=== PATIENT | female | born 1990 | race Caucasian/White ===

== ENCOUNTER 2019-07-02 05:25 | Emergency (ER) | payer BC ==
[2019-07-02] MEDS ORDERED: Albuterol/Ipratropium 3.0-0.5 MG/3 ML Neb Soln NEB ONE (05:44)
--- NOTE | 2019-07-02 05:49 | EDM.PDOC ---
ED HPI GENERAL MEDICAL PROBLEM - General Chief Complaint: Respiratory Problem Stated Complaint: TROUBLE BREATHING Time Seen by Provider: 07/02/19 05:44 Source of Information: Reports: Patient History Limitations: Reports: No Limitations - History of Present Illness INITIAL COMMENTS - FREE TEXT/NARRATIVE: sick with cough since last week. denies fever but worried since son has pneumonia. 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 ED EXAM, GENERAL - Physical Exam Exam: See Below Exam Limited By: No Limitations General Appearance: Alert, WD/WN, Mild Distress, Other (cough spasm) Ears: Hearing Grossly Normal Throat/Mouth: Normal Voice, No Airway Compromise Head: Atraumatic Neck: Non-Tender, Full Range of Motion Respiratory/Chest: No Accessory Muscle Use, Rhonchi, Wheezing. No: Decreased Breath Sounds Cardiovascular: Regular Rate, Rhythm GI/Abdominal: Soft, Non-Tender Neurological: Alert, Oriented, Normal Cognition, Normal Gait, No Motor/Sensory Deficits Psychiatric: Normal Affect, Normal Mood Skin Exam: Warm, Dry, Normal Color Lymphatic: No Adenopathy Course - Vital Signs Last Recorded V/S: Last Vital Signs Temp 36.4 C 07/02/19 05:33 Pulse 113 H 07/02/19 05:33 Resp 16 07/02/19 05:33 BP 140/91 H 07/02/19 05:33 Pulse Ox 99 07/02/19 05:33 - Orders/Labs/Meds Orders: Active Orders 24 hr Category Date Time Status RT Aerosol Therapy [RC] ASDIRECTED Care 07/02/19 05:44 Active Meds: Medications Discontinued Medications Generic Name Dose Route Start Last Admin Trade Name Jimboq PRN Reason Stop Dose Admin Albuterol/Ipratropium 3 ml 07/02/19 05:44 07/02/19 05:49 Duoneb 3.0-0.5 Mg/3 Ml NEB 07/02/19 05:45 3 ml ONETIME ONE Administration Departure - Departure Time of Disposition: 06:00 Disposition: Home, Self-Care 01 Condition: Good Clinical Impression: Bronchospasm with bronchitis, acute - Discharge Information Instructions: Acute Bronchitis, Adult, [id number] Forms: ED Department Discharge Additional Instructions: 1) don't sleep flat at night 2) use humidifier at bedtime 3) drink lots of liquids 4) see family doctor for possible prednisone on Thursday rx given; albuterol 2.5mg solution tid prn Sepsis Event Note - Evaluation Sepsis Screening Result: No Definite Risk - Focused Exam Vital Signs: Vital Signs Temp Pulse Resp BP Pulse Ox 07/02/19 05:33 36.4 C 113 H 16 140/91 H 99 Date Exam was Performed: 07/02/19 Time Exam was Performed: 06:10 - My Orders Last 24 Hours: My Active Orders 07/02/19 05:44 RT Aerosol Therapy [RC] ASDIRECTED - Assessment/Plan Last 24 Hours: My Active Orders 07/02/19 05:44 RT Aerosol Therapy [RC] ASDIRECTED
== END 2019-07-02 05:56 | disposition home or self-care (01) ==
LOC: DL.ED 05:25
DX: J20.9 Acute bronchitis, unspecified (principal); Z88.8 Allergy status to other drugs, medicaments and biological substances; Z88.2 Allergy status to sulfonamides
CPT/HCPCS: 99283-25; J7620-GY

== ENCOUNTER 2019-09-10 18:54 | Inpatient (IN) | payer BC, OTHER ==
[2019-09-10] MEDS ORDERED: Sodium Chloride 0.9% 10 ML Syringe FLUSH PRN (19:47)
[2019-09-10] MEDS ORDERED: Lidocaine 1% 30 ML SDV INJECT PRN (19:47)
[2019-09-10] MEDS ORDERED: Tranexamic Acid 1,000 MG in Sodium Chloride 0.9% 100 ML IV PRN (19:47)
[2019-09-10] MEDS ORDERED: Carboprost Tromethamine 250 MCG/1 ML Amp IM PRN (19:47)
[2019-09-10] MEDS ORDERED: Ondansetron 4 MG/2 ML SDV IVPUSH PRN (19:47)
[2019-09-10] MEDS ORDERED: Lactated Ringers 1,000 ML IV ONE (19:47)
[2019-09-10] MEDS ORDERED: Misoprostol 400 MCG (4 X 100 MCG TAB) RECTAL PRN (19:47)
[2019-09-10] MEDS ORDERED: Methylergonovine 0.2 MG/1 ML Amp IM PRN (19:47)
[2019-09-10] MEDS ORDERED: Oxytocin/Normal Saline 30 UNIT/500 ML BAG IV SCH (20:00)
[2019-09-10] MEDS ORDERED: fentaNYL 100 MCG/2 ML SDV IVPUSH STA ×2 (21:31→22:21)
[2019-09-10] MEDS: Lactated Ringers 1,000 ML IV SCH (21:41)
[2019-09-10] MEDS ORDERED: EPINEPHrine 1 MG/1 ML Amp ONE ×2 (22:48→23:59)
--- NOTE | 2019-09-10 23:07 | PCM.PREANE ---
Preanesthetic Assessment - Procedure Proposed Procedure: INtrathecal analgesia - Anesthesia/Transfusion/Family Hx Anesthesia History: Prior Anesthesia Without Reaction Family History of Anesthesia Reaction: No Transfusion History: No Prior Transfusion(s) - Review of Systems General: No Symptoms Pulmonary: No Symptoms Cardiovascular: No Symptoms Gastrointestinal: No Symptoms Neurological: No Symptoms Other: Reports: None - Physical Assessment NPO Status Date: 09/10/19 NPO Status Time: 18:00 Height: 5 ft 9 in ASA Class: 2E Mental Status: Alert & Oriented x3 Airway Class: Mallampati = 2 Dentition: Reports: Normal Dentition Thyro-Mental Finger Breadths: 3 Mouth Opening Finger Breadths: 3 ROM/Head Extension: Full Lungs: Clear to Auscultation Cardiovascular: Regular Rate - Lab Values: Laboratory Last Values WBC 9.9 10^3/uL (5.0-10.0) 09/10/19 20:05 RBC 4.33 10^6/uL (4.2-5.4) 09/10/19 20:05 Hgb 12.5 g/dL (12.0-16.0) 09/10/19 20:05 Hct 37.3 % (37.0-47.0) 09/10/19 20:05 MCV 86.1 fL (80-100) 09/10/19 20:05 MCH 28.9 pg (27.0-34.0) 09/10/19 20:05 MCHC 33.5 g/dL (33.0-35.0) 09/10/19 20:05 Plt Count 289 10^3/uL (150-450) 09/10/19 20:05 SARS-CoV-2 RNA (RT-PCR) Negative (NEGATIVE) 09/10/19 20:00 - Allergies Allergies/Adverse Reactions: Allergies Allergy/AdvReac Type Severity Reaction Status Date / Time sulfamethoxazole Allergy Hives Verified 07/02/19 05:33 [From Bactrim] trimethoprim [From Bactrim] Allergy Hives Verified 07/02/19 05:33 - Anesthesia Plan Pre-Op Medication Ordered: None - Acknowledgements Anesthesia Type Planned: Spinal Pt an Appropriate Candidate for the Planned Anesthesia: Yes Alternatives and Risks of Anesthesia Discussed w Pt/Guardian: Yes Pt/Guardian Understands and Agrees with Anesthesia Plan: Yes 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: - HOME MEDS Home Medications: Home Meds Pnv No.95/Ferrous Fum/Folic AC [ Caplet] 1 cap PO DAILY 07/02/19 [ History] - CURRENT (IN HOUSE) MEDS Current Meds: Current Medications Acetaminophen (Tylenol) 650 mg PO Q4H PRN PRN Reason: Pain (Mild 1-3) and fever Carboprost Tromethamine (Hemabate Ds) 250 mcg IM ASDIRECTED PRN PRN Reason: HEMORRHAGE Lactated Ringer's (Ringers, Lactated) 1,000 mls @ 125 mls/hr IV ASDIRECTED THANH Last Admin: 09/10/19 21:41 Dose: 125 mls/hr Oxytocin/Sodium Chloride (Pitocin In Ns 30 Unit/500 Ml) 30 unit in 500 mls @ 2 mls/hr IV TITRATE THANH; Protocol Tranexamic Acid 1,000 mg/ (Sodium Chloride) 110 mls @ 660 mls/hr IV ONETIME PRN PRN Reason: Bleeding Lidocaine HCl (Xylocaine-Mpf 1%) 30 ml INJECT ASDIRECTED PRN PRN Reason: Perineal Repair Methylergonovine Maleate (Methergine) 0.2 mg IM ASDIRECTED PRN PRN Reason: Hemorrhage Misoprostol (Cytotec) 800 mcg RECTAL ASDIRECTED PRN PRN Reason: Hemorrhage Ondansetron HCl (Zofran) 4 mg IVPUSH Q4H PRN PRN Reason: Nausea/Vomiting Last Admin: 09/10/19 21:41 Dose: 4 mg Sodium Chloride (Saline Flush) 10 ml FLUSH ASDIRECTED PRN PRN Reason: Keep Vein Open Discontinued Medications Epinephrine HCl (Adrenalin) Confirm Administered Dose 1 mg .ROUTE .STK-MED ONE Stop: 09/10/19 22:49 Fentanyl (Sublimaze) 50 mcg IVPUSH ONETIME STA Stop: 09/10/19 21:32 Last Admin: 09/10/19 21:40 Dose: 50 mcg Fentanyl (Sublimaze) 50 mcg IVPUSH ONETIME STA Stop: 09/10/19 22:22 Last Admin: 09/10/19 22:28 Dose: 50 mcg Lactated Ringer's (Ringers, Lactated) 1,000 mls @ 999 mls/hr IV BOLUS ONE Stop: 09/10/19 20:47 Last Admin: 09/10/19 21:47 Dose: Not Given
--- NOTE | 2019-09-10 23:10 | PCM.PRNOTE ---
- Free Text/Narrative Note: Intrathecal analgesia 2252 in room. Time out complete. Sitting position Back prepped and draped nsf with betadine. Lidocaine skin wheal 1% L3/4 24 ga needle. +CSF - Heme - Parathesia 10 mcg precedex 0.1mL epi .9mL NS 0.9 mL 0.75% marcaine. procedure complete 2259 All needles accounted for. pt. tolerated procedure well.
[2019-09-10] MEDS ORDERED: Dexmedetomidine 200 MCG/2 ML SDV ONE ×2 (23:15→23:59)
[2019-09-10] MEDS ORDERED: ePHEDrine 50 MG/ML SDV ONE (23:31)
[2019-09-10] MEDS ORDERED: Sodium Chloride 0.9% 10 ML Syringe ONE (23:59)
[2019-09-11] MEDS: Lactated Ringers 1,000 ML IV SCH ×2 (00:29→01:18)
[2019-09-11] MEDS ORDERED: ePHEDrine 50 MG/ML SDV ONE ×2 (01:12→01:57)
[2019-09-11] MEDS ORDERED: Sodium Chloride 0.9% 10 ML Syringe ONE (01:30)
[2019-09-11] MEDS ORDERED: EPINEPHrine 1 MG/1 ML Amp ONE ×2 (01:30→01:41)
[2019-09-11] MEDS ORDERED: Dexmedetomidine 200 MCG/2 ML SDV ONE ×2 (01:30→11:47)
--- NOTE | 2019-09-11 02:15 | PCM.PRNOTE ---
- Free Text/Narrative Note: Redo IT Discussed expectations with patient. Reiterated difference between pressure and pain. Pt. wishes to proceed. Time out 0145 Sitting position Back prepped and draped NSF with betadine 1% skin wheal lidocaine L3/4 + CSF - Heme - Parathesia 0.9mL marcaine 0.75% 10 mcg precedex 0.1mL epi 0.9mL saline. Tolerated well. All sharps accounted for. Procedure end 0154
[2019-09-11] MEDS ORDERED: Carboprost Tromethamine 250 MCG/1 ML Amp IM PRN (03:02)
[2019-09-11] MEDS ORDERED: Zolpidem 5 MG Tab PO PRN (03:02)
[2019-09-11] MEDS ORDERED: Tranexamic Acid 1,000 MG in Sodium Chloride 0.9% 100 ML IV PRN (03:02)
[2019-09-11] MEDS ORDERED: Simethicone 80 MG Tab.Chew PO PRN (03:02)
[2019-09-11] MEDS ORDERED: Benzocaine/Menthol 20%-0.5% Spray 56 GM Canister TOP PRN (03:02)
[2019-09-11] MEDS ORDERED: Misoprostol 400 MCG (4 X 100 MCG TAB) RECTAL PRN (03:02)
[2019-09-11] MEDS ORDERED: Sodium Chloride 0.9% 10 ML Syringe FLUSH PRN (03:02)
[2019-09-11] MEDS ORDERED: Oxytocin 10 Units/1 ML SDV IM PRN (03:02)
[2019-09-11] MEDS ORDERED: Acetaminophen 325 MG Tab PO PRN (03:02)
[2019-09-11] MEDS: Ibuprofen 800 MG Tab PO PRN ×3 (06:10→22:21)
[2019-09-11] MEDS: Acetaminophen 325 MG Tab PO PRN ×3 (06:11→17:50)
[2019-09-11] MEDS: Docusate Sodium 100 MG Cap PO PRN (10:12)
[2019-09-11] MEDS: Prenatal Multivitamin with Calcium/Folic Acid/Iron Tab PO SCH (10:12)
--- NOTE | 2019-09-11 11:59 | PCM48HPAN ---
Post Anesthesia Note - EVALUATION WITHIN 48HRS OF ANESTHETIC Vital Signs in Normal Range: Yes Patient Participated in Evaluation: Yes Respiratory Function Stable: Yes Airway Patent: Yes Cardiovascular Function Stable: Yes Hydration Status Stable: Yes Pain Control Satisfactory: Yes Nausea and Vomiting Control Satisfactory: Yes Mental Status Recovered: Yes Vital Signs: Last Vital Signs Temp 97.3 F 09/11/19 08:00 Pulse 67 09/11/19 08:00 Resp 16 09/11/19 08:00 BP 109/66 09/11/19 08:00 Pulse Ox 96 09/11/19 08:00 - COMMENTS/OBSERVATIONS Free Text/Narrative:: Pt resting comfortably in bed. No ARCs
[2019-09-11] MEDS: Acetaminophen/HYDROcodone 325-5 MG Tab PO PRN (20:20)
--- NOTE | 2019-09-11 20:55 | HP ---
LOCATION: [facility]. HISTORY OF PRESENT ILLNESS: The patient is a 29-year-old G2, P1-0-0-1, who presents today with painful contractions. No vaginal bleeding. Possible leakage of fluid. Good movement. OB HISTORY: The patient has had 1 vaginal delivery. That baby did weigh 7 pounds 6 ounces. PULMONOLOGIST/INTENSIVIST HISTORY: No abnormal Paps. No STDs. PAST MEDICAL HISTORY: Negative. PAST SURGICAL HISTORY: Colonoscopy. SOCIAL HISTORY: The patient does smoke. ALLERGIES: The patient is allergic to Bactrim. REVIEW OF SYSTEMS: Her has been relatively uncomplicated. LABS: Blood type O positive, antibody negative, rubella immune, syphilis negative, hepatitis B negative. 1 hour was 135. GBS was negative. Anatomy scan was normal with a posterior placenta. She did have a recent interval growth scan and that was also normal. PHYSICAL EXAMINATION: Vital Signs: The patient's heart rate 58, blood pressure 94/45, temp 36.4 cm. Pelvic: EFM is reactive, reassuring, but a few early decelerations. She was el[place] every 3 minutes. Does appear somewhat uncomfortable. In clinic, she was 1 cm. Our Labor nurse checked her, she was 2 cm, and when I came over to assess the patient, she was 3-1/2 cm, 90% effaced, and -1 station. LABORATORY DATA: White blood cell count was 9.9, hemoglobin 12.5. She is COVID negative. ASSESSMENT AND PLAN: This is an intrauterine at term, in active labor. Group B strep negative. We will augment with AROM. Plan for vaginal delivery and the patient does likely desire an intrathecal. [facility] /[id number] MTDD
--- NOTE | 2019-09-11 21:10 | DEL ---
DATE: 09/11/2019 The patient delivered in [facility] on 09/11/2019. PREDELIVERY DIAGNOSIS: This is an intrauterine at term, admitted in active labor. Group B strep negative. Delivery was a normal spontaneous vaginal delivery. Delivering clinician was Dr. Covington. FINDINGS: There was an who weighed 3750 g. score 9 and 9. ESTIMATED BLOOD LOSS: Normal for vaginal delivery. PROCEDURE IN DETAIL: The patient did present to Labor and Delivery and had regular contractions and was changing her cervix. She is group B strep negative, therefore AROM was performed to augment labor. At some point, it was difficult to obtain heart tones and contractions, therefore FSE and IUPC were both placed. The patient did receive 2 intrathecals and when the infant was having some decelerations, the patient was asked to push and the infant was delivered without any difficulties. Head was delivered. Shoulders were delivered. The was placed on the maternal abdomen. There was delayed cord clamping and the cord was clamped and cut. The cord blood was collected and the placenta was delivered with some cord traction and uterine massage. Then the 3rd stage of Pitocin was given. Placenta was delivered intact. EBL was normal for vaginal delivery, and there were no lacerations. At the end of the procedure, mom and baby were both doing well. The baby did weigh 3750 g, scores were 9 and 9. [facility] /[id number]
[2019-09-12] MEDS: Acetaminophen/HYDROcodone 325-5 MG Tab PO PRN ×2 (05:29→10:29)
[2019-09-12] MEDS: Ibuprofen 800 MG Tab PO PRN (07:41)
--- NOTE | 2019-09-12 07:59 | PCM.DCSUM1 ---
Discharge Summary - Hospital Course Free Text/Narrative:: 29-year-old PPD#1 s/p at 38w0d Diagnosis: Stroke: No - Discharge Data Discharge Date: 09/12/19 Discharge Disposition: Home, Self-Care 01 Condition: Good - Referral to Home Health Primary Care Physician: Jose R Ramirez MD - Patient Summary/Data Operative Procedure(s) Performed: None Complications: None Consults: None Labs Pending at D/C: None Recommended Follow-up Testing/Procedures: None Planned Operative Procedure(s) after DC: None Hospital Course: Please see subjective section - Patient Instructions Diet: Usual Diet as Tolerated Activity: As Tolerated, No Lifting Over 20 Pounds Driving: May Drive Today Showering/Bathing: May Shower Notify Provider of: Fever, Increased Pain, Swelling and Redness - Discharge Plan *PRESCRIPTION DRUG MONITORING PROGRAM REVIEWED*: Not Applicable *COPY OF PRESCRIPTION DRUG MONITORING REPORT IN PATIENT LISA: Not Applicable Home Medications: Home Meds Pnv No.95/Ferrous Fum/Folic AC [ Caplet] 1 cap PO DAILY 07/02/19 [ History] Acetaminophen [Tylenol] 650 mg PO Q6H PRN tablet 09/12/19 [Rx] Acetaminophen/HYDROcodone [Freedom 325-5 MG] 1 tab PO Q4H PRN tablet 09/12/19 [Rx ] Docusate Sodium [Colace] 100 mg PO BID PRN cap 09/12/19 [Rx] Ibuprofen [Motrin] 800 mg PO Q8H PRN tablet 09/12/19 [Rx] - Discharge Summary/Plan Comment DC Time >30 min.: No Discharge Summary/Plan Comment: Discharge home today. Follow-up in clinic in 6-8 weeks for routine care. Reasons to return sooner were reviewed. All questions were answered. - General Info Date of Service: 09/12/19 Subjective Update: 29-year-old now PPD#1 s/p . Doing well. Complains of some back pain and cramping. Did need Freedom to sleep last night. is going well. Baby is sometimes sleepy but does have a good latch. Passing gas. Tolerating a general diet. Ambulating without dizziness or lightheadedness. No concerns per patient or per nursing staff. Functional Status: Reports: Pain Controlled, Tolerating Diet, Ambulating, Urinating - Review of Systems General: Reports: No Symptoms HEENT: Reports: No Symptoms Pulmonary: Reports: No Symptoms Cardiovascular: Reports: No Symptoms Gastrointestinal: Reports: Abdominal Pain Genitourinary: Reports: No Symptoms Musculoskeletal: Reports: Back Pain Skin: Reports: No Symptoms Neurological: Reports: No Symptoms - Patient Data Vitals - Most Recent: Last Vital Signs Temp 36.6 C 09/11/19 20:00 Pulse 66 09/11/19 20:00 Resp 16 09/11/19 20:00 BP 112/56 L 09/11/19 20:00 Pulse Ox 98 09/11/19 20:00 Weight - Most Recent: 113.398 kg Lab Results - Last 24 hrs: Laboratory Results - last 24 hr 09/12/19 Range/Units 05:25 WBC 11.0 H (5.0-10.0) 10^3/uL RBC 3.97 L (4.2-5.4) 10^6/uL Hgb 11.5 L (12.0-16.0) g/dL Hct 35.2 L (37.0-47.0) % MCV 88.7 (80-100) fL MCH 29.0 (27.0-34.0) pg MCHC 32.7 L (33.0-35.0) g/dL Plt Count 252 (150-450) 10^3/uL Med Orders - Current: Current Medications Acetaminophen (Tylenol) 650 mg PO Q4H PRN PRN Reason: Pain (Mild 1-3) and fever Last Admin: 09/11/19 17:50 Dose: 650 mg Acetaminophen (Tylenol) 650 mg PO Q6H PRN PRN Reason: mild pain or fever Hydrocodone Bitart/Acetaminophen (Freedom 325-5 Mg) 1 tab PO Q4H PRN PRN Reason: Pain Last Admin: 09/12/19 05:29 Dose: 1 tab Benzocaine/Menthol (Dermoplast Pain Relief [place]) 0 gm TOP Q4H PRN PRN Reason: Perineal comfort measures Carboprost Tromethamine (Hemabate Ds) 250 mcg IM ASDIRECTED PRN PRN Reason: HEMORRHAGE Carboprost Tromethamine (Hemabate Ds) 250 mcg IM ASDIRECTED PRN PRN Reason: Excessive vaginal bleeding Docusate Sodium (Colace) 100 mg PO BID PRN PRN Reason: Constipation Last Admin: 09/11/19 10:12 Dose: 100 mg Lactated Ringer's (Ringers, Lactated) 1,000 mls @ 125 mls/hr IV ASDIRECTED THANH Last Infusion: 09/11/19 05:40 Dose: 0 mls/hr Oxytocin/Sodium Chloride (Pitocin In Ns 30 Unit/500 Ml) 30 unit in 500 mls @ 2 mls/hr IV TITRATE THANH; Protocol Last Titration: 09/11/19 05:40 Dose: 0 munits/min, 0 mls/hr Tranexamic Acid 1,000 mg/ (Sodium Chloride) 110 mls @ 660 mls/hr IV ONETIME PRN PRN Reason: Bleeding Ibuprofen (Motrin) 800 mg PO Q8H PRN PRN Reason: Mild Pain or Fever Last Admin: 09/12/19 07:41 Dose: 800 mg Lidocaine HCl (Xylocaine-Mpf 1%) 30 ml INJECT ASDIRECTED PRN PRN Reason: Perineal Repair Methylergonovine Maleate (Methergine) 0.2 mg IM ASDIRECTED PRN PRN Reason: Hemorrhage Misoprostol (Cytotec) 800 mcg RECTAL ASDIRECTED PRN PRN Reason: Hemorrhage Misoprostol (Cytotec) 800 mcg RECTAL ONETIME PRN PRN Reason: Hemorrhage Ondansetron HCl (Zofran) 4 mg IVPUSH Q4H PRN PRN Reason: Nausea/Vomiting Last Admin: 09/10/19 21:41 Dose: 4 mg Oxytocin (Pitocin) 10 unit IM ONETIME PRN PRN Reason: Bleeding Prenat Multivit/Geiger/Iron/Folic Ac ( Plus Iron) 1 each PO DAILY THANH Last Admin: 09/11/19 10:12 Dose: 1 each Simethicone (Simethicone) 80 mg PO Q4H PRN PRN Reason: Gas Sodium Chloride (Saline Flush) 10 ml FLUSH ASDIRECTED PRN PRN Reason: Keep Vein Open Sodium Chloride (Saline Flush) 10 ml FLUSH ASDIRECTED PRN PRN Reason: Keep Vein Open Witch Sania (Medi-Pads) 1 each TOP Q4HR PRN PRN Reason: Perineal Comfort Measure Zolpidem Tartrate (Ambien) 5 mg PO BEDTIME PRN PRN Reason: Insomnia Discontinued Medications Dexmedetomidine HCl (Precedex) Confirm Administered Dose 200 mcg .ROUTE .STK- MED ONE Stop: 09/10/19 23:16 Dexmedetomidine HCl (Precedex) Confirm Administered Dose 200 mcg .ROUTE .STK- MED ONE Stop: 09/11/19 11:48 Ephedrine Sulfate (Ephedrine Sulfate) Confirm Administered Dose 50 mg .ROUTE .STK-MED ONE Stop: 09/10/19 23:32 Last Admin: 09/10/19 23:50 Dose: 10 mg Ephedrine Sulfate (Ephedrine Sulfate) Confirm Administered Dose 50 mg .ROUTE .STK-MED ONE Stop: 09/11/19 01:13 Last Admin: 09/11/19 01:18 Dose: 50 mg Ephedrine Sulfate (Ephedrine Sulfate) Confirm Administered Dose 50 mg .ROUTE .STK-MED ONE Stop: 09/11/19 01:58 Last Admin: 09/11/19 04:19 Dose: Not Given Epinephrine HCl (Adrenalin) Confirm Administered Dose 1 mg .ROUTE .STK-MED ONE Stop: 09/10/19 22:49 Last Admin: 09/11/19 00:22 Dose: Not Given Epinephrine HCl (Adrenalin) Confirm Administered Dose 1 mg .ROUTE .STK-MED ONE Stop: 09/11/19 01:42 Last Admin: 09/11/19 04:19 Dose: Not Given Fentanyl (Sublimaze) 50 mcg IVPUSH ONETIME STA Stop: 09/10/19 21:32 Last Admin: 09/10/19 21:40 Dose: 50 mcg Fentanyl (Sublimaze) 50 mcg IVPUSH ONETIME STA Stop: 09/10/19 22:22 Last Admin: 09/10/19 22:28 Dose: 50 mcg Lactated Ringer's (Ringers, Lactated) 1,000 mls @ 999 mls/hr IV BOLUS ONE Stop: 09/10/19 20:47 Last Admin: 09/10/19 21:47 Dose: Not Given - Exam General: Reports: Alert, Oriented HEENT: Reports: Pupils Equal Lungs: Reports: Clear to Auscultation, Normal Respiratory Effort Cardiovascular: Reports: Regular Rate, Regular Rhythm, No Murmurs GI/Abdominal Exam: Soft, Non-Tender Extremities: Pedal Edema (Trace bilaterally) Skin: Reports: Warm, Dry, Intact
[2019-09-12] MEDS: Prenatal Multivitamin with Calcium/Folic Acid/Iron Tab PO SCH (10:29)
[2019-09-12] MEDS: Docusate Sodium 100 MG Cap PO PRN (10:29)
[2019-09-16] MEDS ORDERED: ePHEDrine 50 MG/ML SDV IVPUSH PRN (19:15)
== END 2019-09-12 13:30 | disposition home or self-care (01) | DRG 560 ==
LOC: DL.OBCHECK 18:54 → DL.OB 19:47 → OBSVTOIN 09-11 02:53 → DL.MS 09-11 21:10
PROVIDERS: ADMIT Obstetrics & Gynecology; ATTEND Obstetrics & Gynecology
PROC: 10E0XZZ Delivery of Products of Conception, External Approach (ICD-10-PCS; principal; 2019-09-11)
PROC: 10907ZC Drainage of Amniotic Fluid, Therapeutic from Products of Conception, Via Natural or Artificial Opening (ICD-10-PCS; 2019-09-11)
PROC: 3E0R3BZ Introduction of Anesthetic Agent into Spinal Canal, Percutaneous Approach (ICD-10-PCS; 2019-09-11)
PROC: 00HU33Z Insertion of Infusion Device into Spinal Canal, Percutaneous Approach (ICD-10-PCS; 2019-09-11)
PROC: 10H07YZ Insertion of Other Device into Products of Conception, Via Natural or Artificial Opening (ICD-10-PCS; 2019-09-11)
PROC: 4A1HXCZ Monitoring of Products of Conception, Cardiac Rate, External Approach (ICD-10-PCS; 2019-09-11)
DX: O76 Abnormality in fetal heart rate and rhythm complicating labor and delivery (principal); Z88.2 Allergy status to sulfonamides; Z20.828 Contact with and (suspected) exposure to other viral communicable diseases; Z3A.38 38 weeks gestation of pregnancy; Z37.0 Single live birth
CPT/HCPCS: 36415; 59409; 85027; A9270-GY; J0171; J2405; J2590; J3010; J7120; U0002